=== PATIENT | female | born 1960 | race Caucasian/White ===

== ENCOUNTER 2019-07-17 07:22 | Day surgery (SDC) | payer OTHER ==
[2019-07-14 14:44] VITALS: BMI 23.6
[2019-07-17] MEDS ORDERED: PROPOFOL 20 ML ONE ×3 (07:50)
[2019-07-17 14:24] VITALS: TEMP 97.6
[2019-07-17 14:27] VITALS: BP 135/70; PULSE 58
--- NOTE | 2019-07-19 17:35 | PATH ---
Surgical Pathology Report Patient Name: KATEY VALDEZ [facility]. Rec. #: [id number] /Age/Gender: 1960 (Age: 58) / F Account: [id number] Location: [facility] Taken: 07/17/2019 Received: 07/17/2019 Reported: 07/19/2019 Physicians: Naveen Mcnair M.D. Specimen(s) Received A: CECUM POLYP B: POLYP TRANSVERSE COLON Clinical History Screening Postoperative diagnosis: Colon polyps, fair prep Final Diagnosis A. CECUM, POLYP, POLYPECTOMY: COLONIC MUCOSA WITH PROMINENT LYMPHOID AGGREGATES AND ASSOCIATED CRUSH ARTIFACT. B. TRANSVERSE COLON, POLYP, BIOPSY: TUBULAR ADENOMA. Electronically Signed Madeleine Mancilla M.D. Gross Description A. Received in formalin, labeled "hot snare polypectomy cecum" is a corbett, irregular portion of soft tissue measuring 0.8 cm. in greatest dimension. The specimen is submitted in toto in one cassette. B. Received in formalin, labeled "biopsy polyp transverse colon" is a corbett, irregular portion of soft tissue measuring 0.2 cm. in greatest dimension. The specimen is submitted in toto in one cassette. /07/18/2019 saudi07/18/2019
== END 2019-07-17 10:15 | disposition home or self-care (01) ==
LOC: FASU-ENDO 07:22
PROVIDERS: ATTEND Internal Medicine Gastroenterology
PROC: 0DBL8ZX Excision of Transverse Colon, Via Natural or Artificial Opening Endoscopic, Diagnostic (ICD-10-PCS; 2019-07-17)
PROC: 0DBH8ZX Excision of Cecum, Via Natural or Artificial Opening Endoscopic, Diagnostic (ICD-10-PCS; principal; 2019-07-17 08:56)
DX: Z12.11 Encounter for screening for malignant neoplasm of colon (principal); D12.0 Benign neoplasm of cecum; D12.3 Benign neoplasm of transverse colon
CPT/HCPCS: 88305-TC

== ENCOUNTER 2023-10-22 10:24 | Emergency (ER) | payer OTHER ==
[2023-10-22 10:38] VITALS: BP 178/79; PULSE 84; RESP 17; TEMP 99.1; BMI 29.2
[2023-10-22 12:03] LABS: INR 0.97 (0.83-1.09); PROTHROMBIN TIME (PATIENT) 11.2 SEC (9.7-13.0)
[2023-10-22 12:06] LABS: ACTIVATED PTT 33.8 SECONDS (25.2-36.5)
[2023-10-22 12:14] LABS: ALBUMIN 4.6 g/dl (3.4-5.0); BILIRUBIN,TOTAL 0.8 mg/dl (0.2-1); CALCIUM 9.9 mg/dl (8.5-10.1); CREATININE 0.8 mg/dl (0.6-1.3); POTASSIUM 4.7 mmol/L (3.5-5.1); TOT PROT 7.5 g/dl (6.4-8.2)
[2023-10-22 12:35] LABS: HEMATOCRIT 39.8 % (32.4-45.2); HEMOGLOBIN 13.4 G/dL (10.7-15.3); MCH 29.2 pg (25.7-33.7); MCHC 33.6 g/dl (32.0-36.0); MEAN CELL VOLUME 86.9 fl (80-96); MEAN PLT VOLUME 9.7 fl (7.5-11.1); PLATELET COUNT 200.2 10^3/uL (134-434); RBC 4.58 10^6/uL (3.60-5.2); RDW 14.3 % (11.6-15.6); WHITE BLOOD COUNT 7.3 10^3/uL (4.0-10.8)
== END 2023-10-22 13:57 | disposition home or self-care (01) ==
LOC: FER 10:24
DX: M79.604 Pain in right leg (principal)
CPT/HCPCS: 36415; 80053; 85027; 85610; 85730; 93971-TC; 99284-25